=== PATIENT | female | born 1965 | race Two or more races ===

== ENCOUNTER 2016-05-08 07:25 | Day surgery (SDC) | payer OTHER ==
[~2016-05-08 07:25] MED LIST: FENTANYL 250 MCG/5 ML AMP IV PRN; LACTATED RINGERS 1,000 ML IV SCH; LIDOCAINE Viscous 2% 15 ML UDCUP PO PRN; MIDAZOLAM HCL 5 MG/5 ML VIAL IV PRN
[2016-05-08] MEDS ORDERED: LACTATED RINGERS 1,000 ML ONE (07:49)
[2016-05-08] MEDS ORDERED: IV START KIT ONE (07:49)
[2016-05-08] MEDS ORDERED: MIDAZOLAM HCL 5 MG/5 ML VIAL ONE (08:41)
[2016-05-08] MEDS ORDERED: FENTANYL 100 MCG/2 ML VIAL ONE (08:41)
[2016-05-08] MEDS ORDERED: LIDOCAINE Viscous 2% 15 ML UDCUP ONE (08:41)
[2016-05-08 13:37] LABS: HELICOBACTER PYLORII DETECTION NEGATIVE (NEGATIVE)
--- NOTE | 2016-05-12 15:11 | SURGPATH ---
[facility] [address] [place] [id number] Patient Name: PAPI DILL MR#: [id number] : 1965 Gender: F Specimen #: [id number] Collected: 05/08/2016 Received: 05/11/2016 Reported: 05/12/2016 Submitting Phys: ELIGIO CABRALES Copy To Phys: [facility] Clinical History / Pre-Operative Diagnosis: Epigastric pain, heartburn, nausea, anorexia, rule out; giardia, celiac sprue, gastritis Specimen Source / Surgical Procedure Performed: #1 duodenal biopsy, #2 antral biopsy Interpretation: 1. DUODENUM, BIOPSY: - NO DIAGNOSTIC ABNORMALITIES 2. STOMACH, ANTRUM, BIOPSY: - MINIMAL CHRONIC NONATROPHIC ANTRAL GASTRITIS WITHOUT ACTIVITY - NO HELICOBACTER ORGANISMS SEEN ON IMMUNOSTAIN Electronically Signed Out Lexus Valdes M.D. Gross Description: 1. The specimen is received in formalin labeled with the patient's name and "duodenum". The specimen consists of two fragments of mcmahon soft tissue each is 0.2-0.4 cm in greatest dimension. Submitted in toto in one cassette 2. The specimen is received in formalin labeled with the patient's name and "antrum". The specimen consists of two fragments of mcmahon soft tissue each is 0.3-0.6 cm in greatest dimension. Submitted in toto in one cassette SANDRA Ozuna Microscopic Description: Part 1: Sections show duodenal mucosa with overall intact architecture with a villous to crypt ratio of three to one. No increased intraepithelial lymphocytes, gastric metaplasia, active duodenitis, or evidence of Giardia are seen on routine stain. No malignancy is seen. Part 2: Sections show gastric antral and oxyntic mucosa with overall intact architecture. Minimal chronic inflammation is seen without active inflammation. No Helicobacter organisms are seen on immunostain. The controls stain appropriately. No dysplasia or malignancy is seen. (Analyte-specific reagents (ASR) are used in many laboratory tests necessary for standard medical care and generally do not require FDA approval. This test was developed and its performance characteristics determined by [facility]. It has not been cleared or approved by the [place]. Food and Drug Administration. [facility] is certified under the Clinical Laboratory Improvement Amendments of 1988 as qualified to perform high complexity clinical laboratory testing. All controls stain as expected.) 1: 91914 2: 39465, 78575 K29.30
== END 2016-05-08 10:49 | disposition home or self-care (01) ==
LOC: SDC 07:25
PROVIDERS: ATTEND Internal Medicine Gastroenterology
PROC: 0DB98ZX Excision of Duodenum, Via Natural or Artificial Opening Endoscopic, Diagnostic (ICD-10-PCS; principal; 2016-05-08)
PROC: 0DB68ZX Excision of Stomach, Via Natural or Artificial Opening Endoscopic, Diagnostic (ICD-10-PCS; 2016-05-08)
DX: K29.50 Unspecified chronic gastritis without bleeding (principal); K29.80 Duodenitis without bleeding; I10 Essential (primary) hypertension; G43.909 Migraine, unspecified, not intractable, without status migrainosus; Z88.5 Allergy status to narcotic agent; Z88.2 Allergy status to sulfonamides; Z88.6 Allergy status to analgesic agent; Z88.1 Allergy status to other antibiotic agents
CPT/HCPCS: 43239; 87081; J3010; J2250; A9270; J7120